=== PATIENT | female | born 1995 | race Caucasian/White ===

== ENCOUNTER 2024-11-26 18:56 | Inpatient (IN) | payer BC ==
[~2024-11-26 18:56] MED LIST: Bupivacaine/Epinephrine 0.25% 30 ML VIAL ONE
[2024-11-26 19:14] VITALS: BMI 26.6
[2024-11-26] MEDS ORDERED: Promethazine HCl 25 MG/ML VIAL IM PRN ×2 (19:36→20:58)
[2024-11-26] MEDS ORDERED: hydrALAZINE 20 MG/ML VIAL SLOW IVP PRN (19:36)
[2024-11-26] MEDS ORDERED: Lidocaine 1% (PF) 30 ML VIAL SC PRN (19:36)
[2024-11-26] MEDS ORDERED: Misoprostol 200 MCG TAB PR PRN (19:36)
[2024-11-26] MEDS ORDERED: Acetaminophen 500 MG TAB PO PRN (19:36)
[2024-11-26] MEDS ORDERED: Methylergonovine 0.2 MG/ML VIAL IM PRN (19:36)
[2024-11-26] MEDS ORDERED: Ibuprofen 800 MG TAB PO PRN (19:36)
[2024-11-26] MEDS ORDERED: Carboprost 250 MCG/ML AMP IM PRN (19:36)
[2024-11-26] MEDS ORDERED: Tranexamic Acid 1,000 MG/10 ML VIAL IVP PRN (19:36)
[2024-11-26] MEDS ORDERED: Diphenoxylate HCl/Atropine Tablet PO PRN (19:36)
[2024-11-26] MEDS ORDERED: Oxytocin 30 units/NS 500 ML 500 ML IV SCH (19:45)
[2024-11-26 20:12] LABS: Hematocrit 34.5 % (34.9-44.5); Hemoglobin 11.9 g/dL (12.0-15.5); Mean Corpuscular HGB CONC 34.5 g/dL (32.0-36.0); Mean Corpuscular Hemoglobin 29.8 pg (27.0-33.0); Mean Corpuscular Volume 86.5 fL (81.6-98.3); Mean Platelet Volume 11.9 fL (7.4-10.4); Platelet Count 235 10x3/uL (150-450); RBC Distribution Width 13.1 % (11.5-14.5); Red Blood Cell (RBC) Count 3.99 10x6/uL (3.90-5.03); White Blood Cell (WBC) Count 13.53 10x3/uL (3.5-10.5)
[2024-11-26] MEDS: fentaNYL/Ropivacaine Epidural 100 ML ONE (20:20)
[2024-11-26] MEDS: Lactated Ringer's 1,000 ML IV SCH (20:20)
[2024-11-26] MEDS: Ondansetron PF 4 MG/2 ML Vial IVP PRN (20:37)
[2024-11-26 20:41] LABS: Syphilis Antibody Nonreactive (Nonreactive); Syphilis Antibody Index 0.05 S/CO (<1.00 Non-Reactive)
[2024-11-26 20:42] LABS: HBsAg Index 0.23 S/CO (0-0.99); Hep B Surf Ag - L&D Non-Reactive S/CO (NonReactive)
[2024-11-26] MEDS ORDERED: ePHEDrine Sulfate 50 MG/10 ML VIAL SLOW IVP PRN (20:58)
[2024-11-26] MEDS ORDERED: Acetaminophen 325 MG TAB PO PRN (20:58)
[2024-11-26] MEDS ORDERED: Ondansetron PF 4 MG/2 ML Vial IVP PRN (20:58)
[2024-11-26] MEDS ORDERED: Naloxone HCl 0.4 mg/ml Vial IVP PRN ×2 (20:58)
[2024-11-26] MEDS ORDERED: Moisturizing Cream (Eucerin) 113 GM JAR TOP PRN (20:58)
[2024-11-26] MEDS ORDERED: diphenhydrAMINE 50 MG/ML VIAL IVP PRN (20:58)
[2024-11-26] MEDS ORDERED: Communication Order-Pharmacy FS SCH (21:00)
[2024-11-26] MEDS ORDERED: fentaNYL 2 mcg/Ropivacaine 0.2% Epidural 100 ML CADD EPIDURAL SCH (21:00)
[2024-11-26] MEDS ORDERED: Lactated Ringer's 500 ML IV PRN (21:55)
[2024-11-26] MEDS: Oxytocin 30 units/NS 500 ML 500 ML IV SCH (23:21)
[2024-11-27] MEDS ORDERED: Preparation H Ointment 28 GM TUBE PR PRN (00:59)
[2024-11-27] MEDS ORDERED: Benzocaine-Menthol 82.5 ML CAN TOP PRN (00:59)
[2024-11-27] MEDS ORDERED: Milk Of Magnesia 30 ML UDCUP PO PRN (00:59)
[2024-11-27] MEDS ORDERED: hydrALAZINE 20 MG/ML VIAL SLOW IVP PRN (00:59)
[2024-11-27] MEDS ORDERED: traMADol HCl 50 MG TAB PO PRN (00:59)
[2024-11-27] MEDS ORDERED: Lanolin Ointment 7 GM TUBE TOP PRN (00:59)
[2024-11-27] MEDS ORDERED: Bisacodyl 10 MG SUPP PR PRN (00:59)
[2024-11-27] MEDS ORDERED: diphenhydrAMINE 25 MG CAP PO PRN (00:59)
[2024-11-27] MEDS: Ibuprofen 800 MG TAB PO SCH ×2 (02:07→12:15)
[2024-11-27] MEDS ORDERED: Ibuprofen 800 MG TAB PO SCH (06:00)
[2024-11-27] MEDS: Ferrous Sulfate 325 MG TAB PO SCH (08:30)
[2024-11-27] MEDS: Docusate 100 MG CAP PO SCH (08:36)
[2024-11-27] MEDS: Prenatal Vitamin 1 TAB PO SCH (08:36)
[2024-11-27] MEDS: Boostrix 0.5 ML (Tdap) VIAL (>/=7 yrs of age) IM ONE (08:43)
[2024-11-28 07:44] VITALS: BP 115/72; TEMP 97.9
== END 2024-11-28 12:55 | disposition home or self-care (01) | DRG 806 ==
LOC: CSHLD/OP 18:56 → CSHLD 19:29 → CSHPP 11-27 00:43
PROVIDERS: ADMIT Obstetrics & Gynecology; ATTEND Obstetrics & Gynecology
PROC: 10E0XZZ Delivery of Products of Conception, External Approach (ICD-10-PCS; principal; 2024-11-26)
PROC: 3E0S3BZ Introduction of Anesthetic Agent into Epidural Space, Percutaneous Approach (ICD-10-PCS; 2024-11-26)
PROC: 0W8NXZZ Division of Female Perineum, External Approach (ICD-10-PCS; 2024-11-26)
DX: O24.429 Gestational diabetes mellitus in childbirth, unspecified control (principal); D68.61 Antiphospholipid syndrome; Z37.0 Single live birth; Z3A.38 38 weeks gestation of pregnancy; O99.12 Other diseases of the blood and blood-forming organs and certain disorders involving the immune mechanism complicating childbirth
CPT/HCPCS: 36415; 51702; 85027; 86780; 86850; 86900; 86901; 87340; 99285; J2405; J2590; J7120